=== PATIENT | female | born 1995 | race Hispanic/Latino ===

== ENCOUNTER 2021-05-08 22:48 | Emergency (ER) | payer OTHER ==
[~2021-05-08] VITALS: Ht 162.6 cm; Wt 107.3 kg
[2021-05-08 23:02] VITALS: BP 120/80
== END 2021-05-09 00:22 | disposition left against medical advice (07) ==
LOC: M ED 22:48
DX: Z53.21 Procedure and treatment not carried out due to patient leaving prior to being seen by health care provider (principal)